=== PATIENT | female | born 1980 | race Caucasian/White ===

== ENCOUNTER 2018-03-28 16:38 | Emergency (ER) | payer BC, OTHER ==
[2018-03-28 16:38] VITALS: BMI 29.2
[2018-03-28 17:15] VITALS: TEMP 97.9
--- NOTE | 2018-03-28 17:15 | ED PDOC ---
Arrival/HPI - General Chief Complaint: Back Pain Time Seen by Provider: 03/28/18 16:53 Historian: Patient, Spouse, Family EM Caveat: Language Barrier (Hebrew only; daughter and translate) - History of Present Illness Narrative History of Present Illness (Text): 03/28/18 17:10 Pt is a 37 yr old female with PMH of chronic neck and back pain and liver disorder who presents to the ED for severe low back pain that refers to the lower abdominal quadrants x 1 day. Pt states that she also has dysuria and subjective fever x 1 day but denies chest pain, sob, nausea, vomiting, diarrhea , recent travel, headache, trauma or any other complaints. Pt has taken diclofenac and methocarbamol along with Medrol Dosepack (Day2) that she was given by her PMD. Time/Duration: 24 hours Symptom Onset: Sudden Symptom Course: Worsening Quality: Aching, Pressure, Tightness Severity Level: 9 Activities at Onset: Rest Context: Home Past Medical History - Provider Review Nursing Documentation Reviewed: Yes - Travel History Have you recently traveled outside [place] w/in the past 3 mons?: No - Infectious Disease Hx of Infectious Diseases: None - Tetanus Immunization Tetanus Immunization: Unknown - Reproductive Menopause: No - Past Medical History Past Medical History: No Previous - Cardiac Hx Cardiac Disorders: No - Endocrine/Metabolic Hx Endocrine Disorders: No - Musculoskeletal/Rheumatological Hx Back Pain: Yes - Gastrointestinal Hx Gastrointestinal Ulcer: Yes - Psychiatric Hx Psychophysiologic Disorder: No Hx Anxiety: No Hx Bipolar Disorder: No Hx Depression: No Hx Emotional Abuse: No Hx Hallucinations: No Hx Panic Disorder: No Hx Post Traumatic Stress Disorder: No Hx Psychosis: No Hx Physical Abuse: No Hx Schizophrenia: No Hx Sexual Abuse: No Hx Substance Use: No - Past Surgical History Past Surgical History: No Previous - Surgical History Hx Appendectomy: Yes - Anesthesia Hx Anesthesia: No Hx Anesthesia Reactions: No Hx Malignant Hyperthermia: No - Suicidal Assessment Feels Threatened In Home Enviroment: No Family/Social History - Physician Review Nursing Documentation Reviewed: Yes Family/Social History: Unknown Family HX Smoking Status: Light Smoker < 10 Cigarettes Daily Hx Alcohol Use: No Hx Substance Use: No Hx Substance Use Treatment: No Allergies/Home Meds Allergies/Adverse Reactions: Allergies No Known Allergies Allergy (Verified 01/09/17 11:18) Home Medications: Home Meds Medication Instructions Recorded Confirmed Baclofen [Lioresal] 0 mg PO DAILY 03/28/18 03/28/18 Contro 03/28/18 Methylprednisolone [Medrol Dosepak] 4 mg PO DAILY 03/28/18 03/28/18 Review of Systems - Review of Systems Constitutional: Normal, Fatigue. absent: Fevers Eyes: Normal ENT: Normal Respiratory: Normal. absent: SOB Cardiovascular: Normal. absent: Chest Pain, Palpitations Gastrointestinal: Normal. absent: Abdominal Pain, Stool Changes, Constipation, Diarrhea, Nausea, Vomiting, Appetite Changes, Hematochezia Genitourinary Female: Normal, Dysuria, Frequency. absent: Hematuria, Urine Output Changes, Vaginal Bleeding Musculoskeletal: Normal, Arthralgias, Back Pain Skin: Normal. absent: Rash Neurological: Normal, Gait Changes (antalgic). absent: Headache, Dizziness, Focal Weakness Endocrine: Normal Hemo/Lymphatic: Normal Psychiatric: Anxiety Physical Exam Vital Signs Reviewed: Yes Vital Signs Temp Pulse Resp BP Pulse Ox 03/28/18 21:13 60 17 105/65 100 03/28/18 18:38 78 18 100/78 98 03/28/18 16:48 97.9 F 82 16 97/63 L 99 Temperature: Afebrile Blood Pressure: Normal Pulse: Regular Respiratory Rate: Normal Appearance: Positive for: Well-Appearing, Non-Toxic, Uncomfortable Pain Distress: Moderate Mental Status: Positive for: Alert and Oriented X 3 - Systems Exam Head: Present: Atraumatic, Normocephalic Neck: Present: Normal Range of Motion Respiratory/Chest: Present: Clear to Auscultation, Good Air Exchange. No: Respiratory Distress, Accessory Muscle Use Cardiovascular: Present: Regular Rate and Rhythm, Normal S1, S2. No: Murmurs Abdomen: Present: Normal Bowel Sounds. No: Tenderness, Distention, Peritoneal Signs, Rebound, Guarding, McBurney's Point Tender, Rovsing's Sign Present, Hernias Back: Present: Normal Inspection, Midline Tenderness (lumbar), Paraspinal Tenderness (lumbar L3-5). No: CVA Tenderness Upper Extremity: Present: Normal Inspection, Normal ROM, NORMAL PULSES, Neurovascularly Intact, Capillary Refill < 2s. No: Cyanosis, Edema Lower Extremity: Present: Normal Inspection, NORMAL PULSES, Normal ROM, Neurovascularly Intact, Capillary Refill < 2 s. No: Edema, CALF TENDERNESS, Antoinette's Sign, Tenderness, Swelling, Temperature Abnormalties Neurological: Present: GCS=15, CN II-XII Intact, Speech Normal, Motor Func Grossly Intact, Normal Sensory Function, Normal Cerebellar Funct, Gait Normal Skin: Present: Warm, Dry, Normal Color. No: Rashes Psychiatric: Present: Alert, Oriented x 3, Normal Insight, Normal Concentration , Anxious Medical Decision Making ED Course and Treatment: 03/28/18 17:15 Impression Pt is a 37 yr old female with PMH of chronic neck and back pain and liver disorder who presents to the ED for severe low back pain that refers to the lower abdominal quadrants x 1 day One exam, (+) SLR bilateral, point tender to L3-L5 and paraspinal mm, (+) CVA tenderness b/l, no abdominal tenderness on palpation Working Dx: UTI vs uretal stone vs hepatic pathology vs lumbago/facet jt arthopathy Plan Abdominal US Labs UA toradol 30 im stat Progress note 03/28/18 18:29 US still pending Labs wnl UA normal Abdominal US unremarkable discussed w pt; tramadol and flexeril for chronic LBP see Dr Frances for interventional pain management see recommended CURB ATTENDANT to set up regular visits as discussed Work note x 2 days given; avoid heavy lifting - Lab Interpretations Lab Results: 03/28/18 17:20 03/28/18 17:20 Lab Results 03/28/18 17:41: Urine Color Yellow, Urine Appearance Clear, Urine pH 6.0, Ur Specific [place] 1.010, Urine Protein Negative, Urine Glucose (UA) Negative, Urine Ketones Negative, Urine Blood Small H, Urine Nitrate Negative, Urine Bilirubin Negative, Urine Urobilinogen 0.2, Ur Leukocyte Esterase Negative, Urine RBC 1 - 3, Urine WBC 1 - 3, Ur Epithelial Cells 3 - 4, Urine Bacteria Few 03/28/18 17:20: Sodium 141, Potassium 4.3, Chloride 103, Carbon Dioxide 26, Anion Gap 16, BUN 14, Creatinine 0.5 L, Est GFR ( Amer) > 60, Est GFR ( Non-Af Amer) > 60, Random Glucose 101, Calcium 9.4, Total Bilirubin 0.4, AST 27 , ALT 36, Alkaline Phosphatase 78, Total Protein 7.3, Albumin 4.3, Globulin 3.0 , Albumin/Globulin Ratio 1.4 07/08/18 17:20: WBC 8.5 D, RBC 4.61, Hgb 13.2, Hct 39.4, MCV 85.5, MCH 28.6, MCHC 33.5, RDW 13.1, Plt Count 380, MPV 8.8, Gran % 72.3 H, Lymph % (Auto) 24.2 , [place] % (Auto) 3.0, Eos % (Auto) 0.4 L, Baso % (Auto) 0.1, Gran # 6.17, Lymph # (Auto) 2.1, [place] # (Auto) 0.3, Eos # (Auto) 0.0, Baso # (Auto) 0.01 - RAD Interpretation Narrative RAD Interpretations (Text): 03/28/18 20:55 EXAM: US Abdomen Complete EXAM DATE/TIME: 03/28/2018 5:08 PM CLINICAL HISTORY: 37 years old, female; Pain; Abdominal pain; Generalized; Additional info: H/o hepatomegaly TECHNIQUE: Real-time ultrasound of the abdomen (complete) with image documentation. COMPARISON: US - GALLBLADDER COMMON DUCT 2017-01-09 12:03 FINDINGS: Liver: The liver is not significantly enlarged measuring 15.9 cm in size craniocaudally. No mass. No intrahepatic bile duct dilation. The portal vein is patent and normally directed. Gallbladder: Unremarkable. No gallstones. The technologist reports a negative sonographic Brito's sign. Common bile duct: Unremarkable as visualized, measuring 4 mm in diameter. No stones. No dilation. Pancreas: Unremarkable as visualized. Kidneys: Unremarkable. No stones. No solid mass. No hydronephrosis. Spleen: Unremarkable. No splenomegaly. An accessory splenule is noted. Aorta: Unremarkable. No aneurysm. Inferior vena cava: Unremarkable. IMPRESSION: Normal abdominal ultrasound. Radiology Orders: 03/28/18 17:08 ABDOMEN COMPLETE [US] Stat - Medication Orders Current Medication Orders: Discontinued Medications Ketorolac Tromethamine (Toradol) 30 mg IM STAT STA Stop: 03/28/18 18:31 Last Admin: 03/28/18 18:40 Dose: 30 mg MAR Pain Assessment Document 03/28/18 18:40 EWO (Rec: 03/28/18 18:40 EWO [id number]) Pain Reassessment Is this a pain reassessment? No Sleep Is patient sleeping during reassessment? No Presence of Pain Presence of Pain No IM Administration Charges Document 03/28/18 18:40 MAMTA (Rec: 03/28/18 18:40 O [id number]) Charges for Administration # of IM Administrations 1 Disposition/Present on Arrival - Present on Arrival Any Indicators Present on Arrival: Yes History of DVT/PE: No History of Uncontrolled Diabetes: No Urinary Catheter: No History of Decub. Ulcer: No History Surgical Site Infection Following: None - Disposition Have Diagnosis and Disposition been Completed?: Yes Diagnosis: Lumbago, Facet joint disease of lumbosacral region, Lumbar disc herniation Disposition: HOME/ ROUTINE Disposition Time: 20:45 Patient Plan: Discharge Condition: STABLE Discharge Instructions (ExitCare): Low Back Pain in Adults, Herniated Disc Additional Instructions: CATHY FRANCES, thank you for letting us take care of you today. Your provider was Calos Loomis MD and SAMEER Raman and you were treated for BACK AND ABDOMINAL PAIN. The emergency medical care you received today was directed at your acute symptoms. If you were prescribed any medication, please fill it and take as directed. It may take several days for your symptoms to resolve. Return to the Emergency Department if your symptoms worsen, do not improve, or if you have any other problems. PLEASE FOLLOW UP WITH DR Tai FRANCES FOR FURTHER EVALUATION OF YOUR CHRONIC PAIN. SEE THE RECOMMENDED CURB ATTENDANT FOR FURTHER EVALUATION OF ORAL CONTRACEPTIVES Please contact your doctor or call one of the physicians/clinics you have been referred to that are listed on the Patient Visit Information form that is included in your discharge packet. Bring any paperwork you were given at discharge with you along with any medications you are taking to your follow up visit. Our treatment cannot replace ongoing medical care by a primary care provider outside of the emergency department. Thank you for allowing [facility] to be part of your care today. If you had an X-Ray or CT scan: A Radiologist will review the ED reading if any change in treatment is needed we will contact you. If you had a blood, urine, or wound culture: It will take several days for the results, if any change in treatment is needed we will contact you. Prescriptions: Cyclobenzaprine [Flexeril] 5 mg PO TID 5 Days #15 tab traMADol [Ultram] 50 mg PO BID 1 Days #10 tab Referrals: Jake Frances MD [Staff Provider] - Follow up with primary Loraine Porter MD [Staff Provider] - Follow up with primary Forms: [email or web address] (Japanese), WORK NOTE
[2018-03-28 17:31] LABS: BASO # 0.01 K/mm3 (0.0-2.0); BASO % 0.1 % (0.0-3.0); EOS % 0.4 % (1.5-5.0); GRAN # 6.17 (1.4-6.5); GRAN % 72.3 % (50.0-68.0); HEMOGLOBIN 13.2 g/dL (12.0-16.0); LYMPH # 2.1 (1.2-3.4); LYMPH % 24.2 % (22.0-35.0); MEAN CELL VOLUME 85.5 fl (80.0-105.0); MEAN CORPUSCULAR HEMOGLOBIN 28.6 pg (25.0-35.0); MEAN CORPUSCULAR HGB CONC 33.5 g/dl (31.0-37.0); MEAN PLATELET VOLUME 8.8 fl (7.0-11.0); MONO # 0.3 (0.1-0.6); RBC 4.61 10^6/uL (3.5-6.1); RED CELL DISTRIBUTION WIDTH 13.1 % (11.5-14.5); WHITE BLOOD COUNT 8.5 10^3/ul (4.5-11.0)
[2018-03-28 17:41] LABS: ALB/GLOB RATIO 1.4 (1.1-1.8); ALBUMIN 4.3 g/dL (3.0-4.8); ALT/SGPT 36 U/L (7-56); AST/SGOT 27 U/L (14-36); BLOOD UREA NITROGEN 14 mg/dL (7-21); CALCIUM 9.4 mg/dL (8.4-10.5); GFR AFRICAN-AMERICAN > 60; GFR NON-AFRICAN AMERICAN > 60
[2018-03-28 17:45] LABS: URINE APPEARANCE CLEAR (CLEAR); URINE BILIRUBIN NEGATIVE (NEGATIVE); URINE BLOOD SMALL (NEGATIVE); URINE COLOR YELLOW (YELLOW); URINE GLUCOSE (UA) NEGATIVE (NEGATIVE); URINE LEUKOCYTE ESTERASE NEGATIVE Leu/uL (NEGATIVE); URINE PROTEIN NEGATIVE mg/dL (<30 mg/dL); URINE UROBILINOGEN 0.2 E.U./dL (<1 E.U./dL)
[2018-03-28 17:57] LABS: URINE BACTERIA FEW (NEG)
[2018-03-28 21:16] VITALS: BP 105/65; PULSE 60; RESP 17
[2018-03-28 21:17] VITALS: O2SAT 100
--- NOTE | 2018-03-29 10:06 | US ---
HISTORY: h/o hepatomegaly COMPARISON: None. TECHNIQUE: Sonographic evaluation of the abdomen. FINDINGS: LIVER: Measures cm. Normal echogenicity of the liver parenchyma. No mass. No intrahepatic bile duct dilatation. GALLBLADDER: Unremarkable. No gallstones. COMMON BILE DUCT: Measures mm. No stones. No dilatation. PANCREAS: Unremarkable as visualized. No mass. No ductal dilatation. RIGHT KIDNEY: Measures cm. Normal echogenicity. No calculus, mass, or hydronephrosis. LEFT KIDNEY: Measures cm. Normal echogenicity. No calculus, mass, or hydronephrosis. SPLEEN: Normal in size and contour. No mass. AORTA: No aneurysmal dilatation. IVC: Unremarkable. OTHER FINDINGS: None. IMPRESSION: Unremarkable abdominal sonogram.
== END 2018-03-28 21:13 | disposition home or self-care (01) ==
LOC: ED 16:38
DX: M54.5 Low back pain (principal); M51.26 Other intervertebral disc displacement, lumbar region; F17.210 Nicotine dependence, cigarettes, uncomplicated
CPT/HCPCS: 76700; 80053; 81001; 85025; 96372; 99284; J1885